=== PATIENT | female | born 1990 | race Caucasian/White ===

== ENCOUNTER 2019-12-16 14:53 | Emergency (ER) | payer OTHER ==
[2019-12-16 15:08] VITALS: BP 154/98
--- NOTE | 2019-12-16 15:15 | ED Physician Documentation ---
PD HPI LOWER EXT INJURY - Stated complaint Stated Complaint: BILAT FT RASH - Chief complaint Chief Complaint: Ext Problem - History obtained from History obtained from: Patient - History of Present Illness PD HPI LOW EXT INJURY LOCATION: Other (Foot lesions and foot pain for the last week. Saw telehealth doctor and was prescribed triamcinolone for I guess chilblains. There was no cold exposure. No possibility of .) Review of Systems Constitutional: denies: Fever, Chills Nose: denies: Rhinorrhea / runny nose, Congestion Cardiac: denies: Chest pain / pressure, Palpitations Respiratory: denies: Dyspnea, Cough PD PAST MEDICAL HISTORY - Present Medications Home Medications: Ambulatory Orders Medication Instructions Recorded Confirmed Doxepin [SINEquan] 10 mg PO TID PRN #30 capsule 12/16/19 predniSONE [Deltasone] 20 mg PO [id number] #21 tab 12/16/19 PD ED PE NORMAL - Vitals Vital signs reviewed: Yes - General General: Alert and oriented X 3, No acute distress - Derm Derm: Other (She has a bad case of dyshidrotic eczema between the toes and a little bit less between the fingers especially on the right hand. No evidence of superinfection.) - Neuro Neuro: Alert and oriented X 3, Normal speech Results - Vitals Vitals: Vital Signs - 24 hr 12/16/19 15:02 Temperature 36.7 C Heart Rate 94 Respiratory 16 Rate Blood Pressure 154/98 H O2 Saturation 100 Oxygen O2 Source Room air Departure - Departure Disposition: Home, Self Care Clinical Impression: Dyshidrotic eczema Condition: Good Record reviewed to determine appropriate education?: Yes Instructions: ED Dermatitis Atopic Eczema Follow-Up: [facility] [Provider Group] Prescriptions: Doxepin [SINEquan] 10 mg PO TID PRN #30 capsule PRN Reason: Itching predniSONE [Deltasone] 20 mg PO [id number] #21 tab
== END 2019-12-16 15:20 | disposition home or self-care (01) ==
LOC: ED 14:53
DX: L30.1 Dyshidrosis [pompholyx] (principal)
CPT/HCPCS: 99282; 99283

== ENCOUNTER 2019-12-28 17:18 | Emergency (ER) | payer OTHER ==
[2019-12-28 17:26] VITALS: BP 148/100
[2019-12-28] MEDS ORDERED: predniSONE 20 MG TABLET PO STA (17:35)
--- NOTE | 2019-12-28 17:37 | ED Physician Documentation ---
History of Present Illness - Stated complaint Stated Complaint: RASH ON FOREARMS AND FEET - Chief complaint Chief Complaint: General - History obtained from History obtained from: Patient - History of Present Illness Timing: How many weeks ago (2) Pain level max: 0 Pain level now: 0 - Additonal information Additional information: 29-year-old female presents to the emergency department stating that she was here approximately 2 weeks ago for a rash on her feet. She was started on prednisone at that time she states that it significantly improved but when she stopped the prednisone the rash on her feet started to return as well as a rash on her forearms. Nothing makes it better or worse. It is itchy. No recent medication changes. No recent travel. She does have 2 cats and a dog at home. The dog is indoor and outdoor. Nobody else has symptoms at the home. She has an appoint with dermatology in 2 weeks Review of Systems Constitutional: denies: Fever GI: denies: Nausea, Vomiting, Diarrhea : denies: Now EGA PD PAST MEDICAL HISTORY - Past Medical History Past Medical History: No - Past Surgical History Past Surgical History: No - Present Medications Home Medications: Ambulatory Orders Medication Instructions Recorded Confirmed Doxepin [SINEquan] 10 mg PO TID PRN #30 capsule 12/16/19 predniSONE [Deltasone] 20 mg PO [id number] #21 tab 12/16/19 predniSONE [Deltasone] 10 mg PO [id number] #42 tab 12/28/19 - Allergies Allergies/Adverse Reactions: Allergies Allergy/AdvReac Type Severity Reaction Status Date / Time sulfamethoxazole Allergy Respiratory Verified 12/28/19 17:23 [From Bactrim] trimethoprim [From Bactrim] Allergy Respiratory Verified 12/28/19 17:23 - Living Situation Living Situation: reports: With family Living Arrangement: reports: At home - Social History Does the pt smoke?: No Smoking Status: Never smoker Does the pt drink ETOH?: No Does the pt have substance abuse?: No - Immunizations Immunizations are current?: Yes PD ED PE NORMAL - Vitals Vital signs reviewed: Yes - General General: Alert and oriented X 3, No acute distress - HEENT HEENT: Moist mucous membranes - Neck Neck: Supple, no meningeal sign - Derm Derm: Warm and dry, Other (Maculopapular exanthem over the bilateral forearms. Erythematous, blanches easily. No pustules or vesicles. There is also diffuse erythema across the dorsal aspect of the toes. No vesicles. No skin breakdown between the toes.) - Neuro Neuro: Alert and oriented X 3 - Psych Psych: Normal mood, Normal affect Results - Vitals Vitals: Vital Signs - 24 hr 12/28/19 17:24 Temperature 36.5 C Heart Rate 87 Respiratory 16 Rate Blood Pressure 148/100 H O2 Saturation 100 Oxygen O2 Source Room air PD MEDICAL DECISION MAKING - ED course Complexity details: reviewed old records, considered differential, d/w patient ED course: Patient with an exanthem of unclear etiology. Prednisone seemed to help her a few weeks ago, therefore we will put her back on a taper. She will see dermatology in 2 weeks for further evaluation. Patient counseled regarding signs and symptoms for which I believe and urgent re-evaluation would be necessary. Patient with good understanding of and agreement to plan and is comfortable going home at this time This document was made in part using voice recognition software. While efforts are made to proofread this document, sound alike and grammatical errors may occur. Departure - Departure Disposition: 01 Home, Self Care Clinical Impression: Dermatitis Condition: Good Instructions: ED Dermatitis Non Specific Rash Follow-Up: SELENA LUX ARNP [Primary Care Provider] - [facility] [Provider Group] Prescriptions: predniSONE [Deltasone] 10 mg PO [id number] #42 tab Comments: Return if you worsen. You can use Zyrtec, Claritin or Benadryl for itching. Follow-up with dermatology for further evaluation.
== END 2019-12-28 17:43 | disposition home or self-care (01) ==
LOC: ED 17:18
DX: L30.9 Dermatitis, unspecified (principal); D69.2 Other nonthrombocytopenic purpura
CPT/HCPCS: 36415; 83516; 99282; 99284; J7512

== ENCOUNTER 2019-12-28 17:45 | Outpatient (CLI) | payer OTHER | END 2019-12-28 17:46 | disposition home or self-care (01) | LOC: LAB 17:45 | PROVIDERS: ATTEND Nurse Practitioner Family | DX: D69.2 Other nonthrombocytopenic purpura (principal) | CPT/HCPCS: 36415; 83516 ==

== ENCOUNTER 2020-01-01 16:14 | Outpatient (CLI) | payer OTHER ==
[2020-01-01 16:41] LABS: BILIRUBIN,URINE NEGATIVE (NEGATIVE); GLUCOSE, URINE (UA) NEGATIVE (NEGATIVE); KETONES,URINE (UA) NEGATIVE (NEGATIVE); LEUKOCYTE ESTERASE, URINE NEGATIVE (NEGATIVE); NITRITE,URINE NEGATIVE (NEGATIVE); OCCULT BLOOD,URINE TRACE-INTA (NEGATIVE); PH,URINE 6.5 PH (5.0-7.5); PROTEIN,URINE NEGATIVE (NEGATIVE); UROBILINOGEN,URINE 0.2 (NORMAL) E.U./dL (NORMAL)
[2020-01-01 16:43] LABS: BASOPHILS % (AUTO) 0.2 %; EOSINOPHILS % (AUTO) 0.1 %; HGB - HEMOGLOBIN 13.9 g/dL (12.0-16.0); LYMPHOCYTES # (AUTO) 1.5 10^3/uL (1.5-3.5); LYMPHOCYTES % (AUTO) 11.1 %; MEAN CORPUSCULAR HEMOGLOBIN 31.7 pg (27.0-31.0); MEAN CORPUSCULAR HGB CONC 33.5 g/dL (32.0-36.0); MEAN CORPUSCULAR VOLUME 94.5 fL (81.0-99.0); MEAN PLATELET VOLUME 8.8 fL (7.9-10.8); MONOCYTES # (AUTO) 0.5 10^3/uL (0.0-1.0); MONOCYTES % (AUTO) 3.7 %; NEUTROPHILS # (AUTO) 11.2 10^3/uL (1.5-6.6); NEUTROPHILS % (AUTO) 84.3 %; PLT - PLATELET COUNT 397 10^3/uL (130-450); RED BLOOD COUNT 4.39 10^6/uL (4.20-5.40); RED CELL DISTRIBUTION WIDTH 13.6 % (12.0-15.0); WHITE BLOOD COUNT 13.2 x10^3/uL (4.8-10.8)
[2020-01-01 16:49] LABS: CALCIUM 9.2 mg/dL (8.5-10.3)
[2020-01-01 16:51] LABS: CLARITY,URINE CLEAR (CLEAR)
[2020-01-01 16:52] LABS: BACTERIA,URINE None Seen /HPF (None Seen); RBC,URINE 0-5 /HPF (0-5); SQUAMOUS EPITHELIAL CELL,UR RARE Squamous (<= Few)
== END 2020-01-01 16:15 | disposition home or self-care (01) ==
LOC: LAB 16:14
PROVIDERS: ATTEND Family Medicine
DX: R21 Rash and other nonspecific skin eruption (principal)
CPT/HCPCS: 36415; 80048; 81001; 81599; 85025; 86038; 87086

== ENCOUNTER 2020-01-04 12:44 | Outpatient (CLI) | payer OTHER | END 2020-01-04 12:45 | disposition home or self-care (01) | LOC: LAB 12:44 | PROVIDERS: ATTEND Family Medicine | DX: R21 Rash and other nonspecific skin eruption (principal) | CPT/HCPCS: 81599; 85613; 85730; 86147 ==

== ENCOUNTER 2020-10-22 08:29 | Outpatient (CLI) | payer OTHER ==
[2020-10-22 15:31] LABS: ALBUMIN 4.2 g/dL (3.2-5.5); ALBUMIN/GLOBULIN RATIO 1.2 (1.0-2.2); BILIRUBIN,TOTAL 0.4 mg/dL (0.2-1.0); CALCIUM 9.2 mg/dL (8.5-10.3); CREATININE 0.7 mg/dL (0.4-1.0); TOTAL PROTEIN 7.8 g/dL (6.7-8.2)
[2020-10-22 15:32] LABS: HEMOGLOBIN A1c% 5.1 % (4.27-6.07)
== END 2020-10-22 08:30 | disposition home or self-care (01) ==
LOC: LAB.S 08:29
PROVIDERS: ATTEND Obstetrics & Gynecology
DX: E06.3 Autoimmune thyroiditis (principal); Z13.1 Encounter for screening for diabetes mellitus; Z13.21 Encounter for screening for nutritional disorder; D68.61 Antiphospholipid syndrome; L93.0 Discoid lupus erythematosus; Z31.69 Encounter for other general counseling and advice on procreation
CPT/HCPCS: 36415; 80053; 81599; 82306; 83036; 84443; 85613; 85730; 86146; 86147; 86235; 86762; 86787